=== PATIENT | female | born 1955 | race Caucasian/White ===

== ENCOUNTER 2022-04-03 08:31 | Outpatient (REF) | payer OTHER, SELFPAY ==
--- NOTE | ~2022-04-03 | XR_ITS ---
EXAMINATION: LEFT HIP AND AP PELVIS CLINICAL INFORMATION: Pain COMPARISON: None TECHNIQUE: AP pelvis one view. Left hip 2 views FINDINGS: AP pelvis: There is minimal loss of left hip joint space. The right hip joint space is normal. The SI joints are symmetrical and normal.. There is no visible acute fracture, dislocation or bony erosive changes. There are several phleboliths in the pelvis. The soft tissues are unremarkable. Left hip: AP and frog-leg views left hip reveal a moderate loss of left hip joint space with periarticular spurring. No visible acute fracture, dislocation or lytic process seen. The soft tissues are normal. XR/XR hip LT min 2V IMPRESSION: The right hip joint space and SI joints are normal.. There is mild degenerative changes left hip joint space with periarticular spurring. There is no visible acute fracture or dislocation in the pelvis or the hip joints.
--- NOTE | ~2022-04-03 | XR_ITS ---
EXAMINATION: LEFT HIP AND AP PELVIS CLINICAL INFORMATION: Pain COMPARISON: None TECHNIQUE: AP pelvis one view. Left hip 2 views FINDINGS: AP pelvis: There is minimal loss of left hip joint space. The right hip joint space is normal. The SI joints are symmetrical and normal.. There is no visible acute fracture, dislocation or bony erosive changes. There are several phleboliths in the pelvis. The soft tissues are unremarkable. Left hip: AP and frog-leg views left hip reveal a moderate loss of left hip joint space with periarticular spurring. No visible acute fracture, dislocation or lytic process seen. The soft tissues are normal. XR/XR pelvis 1-2V IMPRESSION: The right hip joint space and SI joints are normal.. There is mild degenerative changes left hip joint space with periarticular spurring. There is no visible acute fracture or dislocation in the pelvis or the hip joints.
== END 2022-04-03 08:32 | disposition home or self-care (01) ==
LOC: HO.HOSX 08:31
PROVIDERS: Visit Provider Physician Assistant
DX: M70.62 Trochanteric bursitis, left hip (principal)
CPT/HCPCS: 72170; 73502; 99202

== ENCOUNTER 2025-01-27 13:10 | Emergency (ER) | payer MEDICARE, SELFPAY ==
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
[2025-01-27 13:13] VITALS: BP 118/68; PULSE 117; O2SAT 97
[2025-01-27 13:25] VITALS: BP 133/91; PULSE 75; RESP 18; O2SAT 96; BMI 24.3
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
[2025-01-27 16:14] VITALS: BP 133/91; PULSE 75; RESP 18; TEMP 37.1; O2SAT 96
== END 2025-01-27 16:14 | disposition home or self-care (01) ==
PROVIDERS: Emergency Provider Emergency Medicine
DX: S02.40CA Maxillary fracture, right side, initial encounter for closed fracture (principal); S01.81XA Laceration without foreign body of other part of head, initial encounter; Y04.2XXA Assault by strike against or bumped into by another person, initial encounter; Z72.89 Other problems related to lifestyle; Z63.0 Problems in relationship with spouse or partner; Y93.9 Activity, unspecified; Y92.009 Unspecified place in unspecified non-institutional (private) residence as the place of occurrence of the external cause; Y99.9 Unspecified external cause status
CPT/HCPCS: 12013; 70450; 70486; 72125; 99284

== ENCOUNTER → 2025-01-27 13:40 | Outpatient (BNV) | payer MEDICARE, SELFPAY | PROVIDERS: Emergency Provider Emergency Medicine; Visit Provider Radiology Diagnostic Radiology | DX: M54.2 Cervicalgia (principal); S02.40CA Maxillary fracture, right side, initial encounter for closed fracture; J01.20 Acute ethmoidal sinusitis, unspecified | CPT/HCPCS: 70450; 70486; 72125 ==

== ENCOUNTER 2025-02-06 13:21 | Emergency (ER) | payer MEDICARE, SELFPAY ==
[2025-02-06 13:44] VITALS: BP 130/79; PULSE 67; RESP 16; TEMP 36.5; O2SAT 97; BMI 21.6
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
[2025-02-06 14:40] VITALS: BP 130/79; PULSE 67; RESP 16; TEMP 36.5; O2SAT 97
== END 2025-02-06 16:40 | disposition home or self-care (01) ==
PROVIDERS: Emergency Provider Emergency Medicine; PCP Physician Assistant
DX: Z48.02 Encounter for removal of sutures (principal)
CPT/HCPCS: 99282

== ENCOUNTER 2025-02-26 11:29 | Emergency (ER) | payer MEDICARE, SELFPAY ==
[2025-02-26 11:37] VITALS: BP 103/74; PULSE 81; RESP 18; TEMP 36.8; O2SAT 98; BMI 22.8
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
== END 2025-02-26 16:39 | disposition left against medical advice (07) ==
PROVIDERS: Emergency Provider Emergency Medicine Emergency Medical Services; PCP Physician Assistant
DX: R22.41 Localized swelling, mass and lump, right lower limb (principal); F12.90 Cannabis use, unspecified, uncomplicated
CPT/HCPCS: 99281